=== PATIENT | male | born 2000 | race Caucasian/White ===

== ENCOUNTER 2021-09-29 10:08 | Emergency (ER) | payer OTHER, SELFPAY ==
[2021-09-29 10:24] VITALS: BP 139/52; PULSE 97; RESP 16; TEMP 36.5; O2SAT 100
--- NOTE | 2021-09-29 11:28 | ED.URI ---
HPI - URI/Sore Throat General Chief Complaint: Upper Respiratory Infection Stated Complaint: sinus infection Time Seen by Provider: 09/29/21 11:05 Source: patient and RN notes reviewed Mode of arrival: ambulatory Limitations: no limitations History of Present Illness HPI Narrative: Patient presents today complaining of a 3-day history of sore throat, congestion, rhinorrhea, slight cough. Reports he had a fever of 102 last night but this is resolved. Reports all of his symptoms have been improving since onset. He has been taking ibuprofen and NyQuil as well as vitamin C with some relief. He has been vaccinated against COVID-19. He has not had a flu shot. MD elicited complaint: cough, sore throat and nasal congestion Related Data Allergies Allergy/AdvReac Type Severity Reaction Status Date / Time No Known Allergies Allergy Verified 09/29/21 11:37 Review of Systems Review of Systems: CONSTITUTIONAL: Denies body aches, chills, or sweats.+ Fever EYES: Denies visual changes, redness, or discharge. ENT: Denies otalgia.+ Rhinorrhea, congestion, sore throat CARDIOVASCULAR: Denies chest pain, palpitations, or edema. RESPIRATORY: Denies dyspnea.+ Cough GASTROINTESTINAL: Denies abdominal pain, nausea, vomiting, or diarrhea. GENITOURINARY: Denies dysuria or hematuria. SKIN: Denies rash, itching, or wounds. MUSCULOSKELETAL: Denies back pain, joint pain, or myalgia. NEUROLOGIC: Denies headache, numbness, tingling, or weakness. PSYCH: Denies depression or anxiety. PMFSH Comments At time of signature, I have reviewed and agree with nursing past medical, surgical, social and family history unless otherwise noted. Please see nursing chart for further information. There is no relevant family history pertinent to the presenting complaint Exam Narrative: GENERAL: Well-appearing, well-nourished, and in no acute distress. HEAD: Normocephalic, atraumatic. EYES: EOMI. No redness or drainage. Conjunctivae normal. ENT: Mucous membranes pink and moist. Nares clear. No rhinorrhea. TMs normal bilaterally. Throat normal with some clear postnasal drainage. Uvula midline. NECK: Normal AROM. Supple. No lymphadenopathy. CHEST: No respiratory distress. Clear to auscultation. HEART: Regular rate and rhythm. No murmur appreciated. Normal peripheral pulses. EXTREMITIES: Normal range of motion. No edema. SKIN: Warm, dry, no rash. Capillary refill normal. Normal skin turgor. NEURO: No focal deficits. Alert and oriented x3. Gait steady. PSYCH: Normal affect. No signs of depression or anxiety. Course Vital Signs Vital signs: Vital Signs Temperature 97.7 F 09/29/21 10:24 Pulse Rate 97 09/29/21 10:24 Respiratory Rate 16 09/29/21 10:24 Blood Pressure 139/52 L 09/29/21 10:24 Pulse Oximetry 100 09/29/21 10:24 Temperature 97.7 F 09/29/21 10:24 Pulse Rate 97 09/29/21 10:24 Respiratory Rate 16 09/29/21 10:24 Blood Pressure 139/52 L 09/29/21 10:24 Pulse Oximetry 100 09/29/21 10:24 Reviewed. Pt has been instructed to follow up with his PCP regarding his elevated blood pressure today. MDM - URI/Sore Throat Differential Diagnosis Differential diagnosis: Likely upper respiratory infection, sinusitis, viral infection, pharyngitis and other (COVID-19, strep throat) Lab Data Attestation: I reviewed the patient's lab results. Labs: Strep Screen Presumptive Negative *(Reference Range: Negative)* Critical Care Time Critical Care Time Critical Care Time: No Discharge Plan Discharge Clinical Impression: Upper respiratory infection Qualifiers: URI type: unspecified URI Qualified Code(s): J06.9 - Acute upper respiratory infection, unspecified Patient Disposition: Home, Self-Care Condition: Stable Instructions: Upper Respiratory Infection (DC) Additional Instructions: Your rapid strep swab was negative today at [facility]. You will be notified in a
[2021-09-30 15:26] LABS: SARS-CoV-2 RNA PCR Positive
== END 2021-09-29 11:40 | disposition home or self-care (01) ==
PROVIDERS: Emergency Provider Nurse Practitioner
DX: J06.9 Acute upper respiratory infection, unspecified (principal); Z20.822 Contact with and (suspected) exposure to COVID-19
CPT/HCPCS: 87081; 87880; 99203; C9803; G0463; U0003; U0005

== ENCOUNTER 2025-05-18 15:38 | Emergency (ER) | payer SELFPAY ==
--- NOTE | ~2025-05-18 | XR_ITS ---
HISTORY: LACERATION COMPARISON: None TECHNIQUE: 3 views of the LEFT hand were performed. FINDINGS: An avulsion fracture is identified within the distal third of the third metacarpal shaft. No additional fractures are detected. The joint spaces are preserved. The carpal arcs are intact. Mild radiocarpal joint space narrowing with sclerosis of the distal radius is present. Trace negative ulnar variance is detected. Bone mineralization is age-appropriate. No significant soft tissue swelling. No radiopaque foreign body is identified. Multiple punctate lucencies within the soft tissues projecting over the first and second, second and third and third and fourth web spaces at the level of the metacarpals, likely consistent with patient 's history. IMPRESSION: Tiny avulsion fracture within the distal third of the third metacarpal shaft, along the r adial surface. Air within the soft tissues. No radiopaque foreign body. Reviewed, dictated and finalized at location A. IMPRESSION: Tiny avulsion fracture within the distal third of the third metacar pal shaft, along the radial surface. Air within the soft tissues. No radiopaque foreign body.
[2025-05-18 15:52] VITALS: BP 125/63; PULSE 78; RESP 20; TEMP 36.7; O2SAT 100
--- NOTE | 2025-05-18 16:32 | ED_ITS ---
HPI - General Adult General Chief complaint: Wound/Laceration Stated complaint: right hand knife cut Source: patient Mode of arrival: ambulatory Limitations: no limitations History of Present Illness HPI narrative: Patient presents for evaluation of laceration to the palmar aspect of the left hand that occurred just prior to arrival. He indicates he was sawing a frozen piece of lasagna andthe knife slipped, cutting his left palm in the process. He denies considerable pain. No loss of ROM. No paresthesias. He is not diabetic. He does not smoke cigarettes but does use marijuana. He is right- hand dominant. Date of last tetanus unknown. Related Data Allergies Allergy/AdvReac Type Severity Reaction Status Date / Time No Known Allergies Allergy Verified 05/18/25 15:40 Review of Systems Review of Systems: CONSTITUTIONAL: Denies fever, chills, or sweats. EYES: Denies visual changes, redness, or discharge. ENT: Denies rhinorrhea, congestion, sore throat, or otalgia. CARDIOVASCULAR: Denies chest pain, palpitations, or edema. RESPIRATORY: Denies cough or dyspnea. GASTROINTESTINAL: Denies abdominal pain, nausea, vomiting, or diarrhea. GENITOURINARY: Denies dysuria or hematuria. SKIN: Reports laceration to the palmar aspect of the left hand MUSCULOSKELETAL: Denies back pain, joint pain, or myalgia. NEUROLOGIC: Denies headache, numbness, dizziness, or weakness. PSYCHIATRIC: Denies anxiety or depression. PMFSH Past Medical History Medical History No pertinent past medical history Surgical History Surgical History No pertinent past surgical history Family History Family History Mother Family history non-contributory Social History Social History Substance use: current Substance use type: marijuana Gender identity (if verbalized by the patient): Male Sexual Orientation (if Verbalized by the Patient): Straight or Heterosexual Spiritual care concerns: No Exam Narrative: GENERAL: Well-appearing, well-nourished, and in no acute distress. HEAD: Normocephalic, atraumatic. EYES: PERRLA and EOMI. ENT: Nares clear, no rhinorrhea or epistaxis. Mucous membranes moist. Oropharynx without tonsillar hypertrophy exudate or other lesions. Bilateral TMs pearly gambino nonbulging NECK: Supple. No adenopathy or masses. No carotid bruits or JVD CHEST: Clear to auscultation. No respiratory distress. No wheezes rales or rhonchi HEART: Regular rate and rhythm. No murmur heard. Normal peripheral pulses. ABDOMEN: Soft, nontender, nondistended, normal active bowel sounds. EXTREMITIES: he is able to flex and extend all digits of the left hand. Mild tenderness in the site of the left palm laceration SKIN: approximately 4 cm linear laceration to the palmar aspect of the left hand proximal to the MCP joints Wound bed red with visible subcutaneous fat tissue. NEURO: No focal deficits. Alert and oriented x3. PSYCH: Normal mood and affect. Course Course Emergency Course: This is a 24-year-old male who presented for evaluation of an injury to the left hand. X-ray showed avulsion fracture of the 3rd metacarpal of the left hand. I contacted orthopedics, Dr Cooper, who is in agreement for wound closure, discharge with oral antibiotics and follow-up in clinic. Wound was thoroughly irrigated and closed. patient tolerated well. There is no apparent through and through tendon injury on exam. He was given Rocephin while here. His tetanus was updated. He will be discharge with cephalexin. Advised on wound care. Dr Cooper agreed that splint was not necessary. Pt was advised to follow up with him in clinic. He will call tomorrow for an appointment. He should go to the ER for signs of infection. Pt in agreement with plan of care. Level of Care: Express Care Visit Vital Signs Vital signs: Vital Signs Temperature 36.7 C 05/18/25 15:52 Pulse Rate 78 05/18/25 15:52 Respiratory Rate 20 05/18/25 15:52 Blood Pressure 125/63 05/18/25 15:52 Pulse Oximetry 100 05/18/25 15:52 Oxygen Delivery Room Air 05/18/25 15:52 Temperature 36.7 C 05/18/25 15:52 Pulse Rate 78 05/18/25 15:52 Respiratory Rate 20 05/18/25 15:52 Blood Pressure 125/63 05/18/25 15:52 Pulse Oximetry 100 05/18/25 15:52 Oxygen Delivery Room Air 05/18/25 15:52 Procedures Laceration Laceration 1: Date: 05/18/25 Time: 18:30 Site: upper extremity Side (If applicable): left Size (cm): 4 Description: linear Local Anesthetic: lidocaine 1% Amount of anesthesia used (mL): 12 Pre-repair: wound explored and irrigated extensively ====== Skin Level ====== Skin layer closed with: nylon Size (cm): 4-0 Number of sutures: 8 ====== Subcutaneous Layer ====== Subcutaneous layer closed with: vicryl Size: 4-0 Number of sutures: 3 Technique: simple, interrupted ====== Muscle Layer ====== ====== Tendon Layer ====== Medical Decision Making Vital Signs Vital Signs: Vital Signs Temperature 36.7 C 05/18/25 15:52 Pulse Rate 78 05/18/25 15:52 Respiratory Rate 20 05/18/25 15:52 Blood Pressure 125/63 05/18/25 15:52 Pulse Oximetry 100 05/18/25 15:52 Oxygen Delivery Room Air 05/18/25 15:52 Temperature 36.7 C 05/18/25 15:52 Pulse Rate 78 05/18/25 15:52 Respiratory Rate 20 05/18/25 15:52 Blood Pressure 125/63 05/18/25 15:52 Pulse Oximetry 100 05/18/25 15:52 Oxygen Delivery Room Air 05/18/25 15:52 Imaging Data Radiologist's impression: HISTORY: LACERATION COMPARISON: None TECHNIQUE: 3 views of the LEFT hand were performed. FINDINGS: An avulsion fracture is identified within the distal third of the third metacarpal shaft. No additional fractures are detected. The joint spaces are preserved. The carpal arcs are intact. Mild radiocarpal joint space narrowing with sclerosis of the distal radius is present. Trace negative ulnar variance is detected. Bone mineralization is age-appropriate. No significant soft tissue swelling. No radiopaque foreign body is identified. Multiple punctate lucencies within the soft tissues projecting over the first and second, second and third and third and fourth web spaces at the level of the metacarpals, likely consistent with patient's history. IMPRESSION: Tiny avulsion fracture within the distal third of the third metacarpal shaft, along the radial surface. Air within the soft tissues. No radiopaque foreign body. Discharge Plan Discharge Clinical Impression: Laceration of hand, left, Open avulsion fracture of shaft of metacarpal bone Patient Disposition: Home Condition: Stable Instructions: Antibiotic Form, Laceration (DC), Hand Fracture (DC) Additional Instructions: WASH YOUR HANDS THREE TIMES DAILY, AND WHEN THEY ARE VISIBLY SOILED WITH ANTIBACTERIAL SOAP AND WATER PAT DRY APPLY NEOSPORIN THEREAFTER PLEASE CALL ORTHOPEDICS TOMORROW FOR AN APPOINTMENT YOUR SUTURES WILL NEED TO BE REMOVED IN APPROXIMATELY 10 DAYS IF YOU HAVE ANY SIGNS OF INFECTION SUCH REDNESS OR YELLOW/GREEN DRAINAGE, PLEASE GO TO THE ER TAKE YOUR ENTIRE COURSE OF ANTIBIOTICS Patient Language: Greenlandic Prescriptions: New cephalexin 500 mg tablet 500 mg PO Q6H 10 Days Qty: 40 0RF Follow-up/Referrals: Eriberto Cooper MD [Physician] - Stand Alone Forms: Work/School Release IP Time of Disposition: 18:37
[2025-05-18] MEDS: TETANUS,DIPHTHERIA,AC PERTUSSIS ADULT (0.5 ML) BOOSTRIX IM (16:37)
[2025-05-18] MEDS: LIDOCAINE 1% LOCAL INJ 2 ML AMPUL 8 ML INFILTRATE (16:48)
[2025-05-18] MEDS: cefTRIAXone 1 GM, LIDOCAINE 1% LOCAL INJ 2.1 ML IM (16:59)
[2025-05-18] MEDS: HYDROGEN PEROXIDE 3% TOPICAL SOLUTION 118 ML BOTTLE 100 ML IRRIGATION (17:37)
[2025-05-18] MEDS: LIDOCAINE 1% LOCAL INJ 2 ML AMPUL 4 ML INFILTRATE (18:31)
== END 2025-05-18 18:45 | disposition home or self-care (01) ==
PROVIDERS: Emergency Provider Nurse Practitioner
DX: S62.323B Displaced fracture of shaft of third metacarpal bone, left hand, initial encounter for open fracture (principal); W26.0XXA Contact with knife, initial encounter; Z23 Encounter for immunization; F12.90 Cannabis use, unspecified, uncomplicated
CPT/HCPCS: 12042; 73130; 90471; 90715; 96372; 99213; A9270; G0463; J0696; J2003